=== PATIENT | female | born 1990 | race Caucasian/White ===

== ENCOUNTER 2018-04-20 21:04 | Inpatient (IN) | payer OTHER ==
[2018-04-21] MEDS: ACETAMINOPHEN 325 MG TAB PO (01:56)
[2018-04-21] MEDS: ONDANSETRON (ODT) 4 MG TAB ODT (01:56)
[2018-04-21 02:14] LABS: ADD UMIC NO; UR ASCORBIC ACID NEGATIVE (NEGATIVE); UR BILIRUBIN (Dip) NEGATIVE (NEGATIVE); UR BLOOD (Dip) NEGATIVE (NEGATIVE); UR CLARITY CLEAR (CLEAR); UR COLOR STRAW (YELLOW); UR GLUCOSE (Dip) 3+ mg/dL (NEGATIVE); UR KETONES (Dip) 2+ mg/dL (NEGATIVE); UR LEUKOCYTE ESTERASE (Dip) NEGATIVE Leu/ul (NEGATIVE); UR NITRITE (Dip) NEGATIVE (NEGATIVE); UR SPECIFIC GRAVITY (Dip) 1.032 (1.003-1.030); UR TOTAL PROTEIN (Dip) NEGATIVE (NEGATIVE); UR UROBILINOGEN (Dip) NEGATIVE (NEGATIVE)
[2018-04-21] MEDS: SOD CHLORIDE 0.9% 1,000 ML IV (02:39)
[2018-04-21 03:02] LABS: ALANINE AMINOTRANSFERASE 8 IU/L (13-69); ALBUMIN 4.5 g/dl (3.3-4.9); ALBUMIN/GLOBULIN RATIO 1.15; ALKALINE PHOSPHATASE 143 IU/L (42-121); ANION GAP 18 (5-13); ASPARTATE AMINO TRANSFERASE 12 IU/L (15-46); BILIRUBIN,INDIRECT 0.4 mg/dl (0-1.1); BILIRUBIN,TOTAL 0.4 mg/dl (0.2-1.3); BLOOD UREA NITROGEN 9 mg/dl (7-20); CALCIUM 9.9 mg/dl (8.4-10.2); CARBON DIOXIDE 18 mmol/L (21-31); CHLORIDE 102 mmol/L (97-110); CREATININE 0.37 mg/dl (0.44-1.00); Estimated GFR > 60 mL/min (>60); GLUCOSE 337 mg/dl (70-220); POTASSIUM 3.9 mmol/L (3.5-5.1); SODIUM 138 mmol/L (135-144); TOTAL PROTEIN 8.4 g/dl (6.1-8.1)
[2018-04-21 04:12] LABS: MODE ROOM AIR; MetHgb Venous 0.3 %; Sample Type Blood venous; Site VENOUS LINE; Venous COHb 0.2 %; Venous Fraction OxyHgb 76.5 %; Venous Oxygen Sat 76.9 mmHG (55.0-75.0); Venous Total Hemglobin 14.4 g/dl
[2018-04-21 04:20] LABS: ADD MAN DIFF? NO
[2018-04-21 04:21] LABS: BASOPHILS % 0.3 % (0.0-2.0); EOSINOPHILS # 0.1 10^3/ul (0.0-0.5); EOSINOPHILS % 0.4 % (0.0-7.0); HEMATOCRIT 39.5 % (37.0-47.0); LYMPHOCYTES # 1.7 10^3/ul (0.8-2.9); LYMPHOCYTES % 15.4 % (15.0-51.0); MEAN CORPUSCULAR HEMOGLOBIN 26.2 pg (29.0-33.0); MEAN CORPUSCULAR HGB CONC 32.9 g/dl (32.0-37.0); MEAN CORPUSCULAR VOLUME 79.6 fl (82.0-101.0); MEAN PLATELET VOLUME 9.6 fl (7.4-10.4); MONOCYTE # 1.2 10^3/ul (0.3-0.9); MONOCYTES % 10.9 % (0.0-11.0); NEUTROPHIL # 8.2 10^3/ul (1.6-7.5); NEUTROPHILS % 72.6 % (39.0-77.0); PLATELET COUNT 298 10^3/UL (140-415); RED BLOOD COUNT 4.96 10^6/ul (4.20-5.40); RED CELL DISTRIBUTION WIDTH 12.2 % (11.5-14.5)
[2018-04-21 04:21] LABS: WHITE BLOOD COUNT 11.2 10^3/ul (4.8-10.8)
[2018-04-21] MEDS ORDERED: NS + KCL 30 MEQ 1,000 ML IV (04:23)
[2018-04-21] MEDS ORDERED: D10/0.45% NACL + KCL 40 MEQ 1,000 ML IV (04:23)
[2018-04-21] MEDS ORDERED: DEXTROSE 10 %/0.45 % NACL 1,000 ML IV (04:23)
[2018-04-21] MEDS ORDERED: SOD CHLORIDE 0.9% 1,000 ML IV (04:23)
[2018-04-21] MEDS ORDERED: NS + KCL 40 MEQ 1,000 ML IV (04:23)
[2018-04-21] MEDS ORDERED: DEXTROSE 50% 50 ML SYRINGE IV ×4 (04:30→09:30)
[2018-04-21] MEDS: LACTATED RINGER'S 670 ML IV (04:34)
[2018-04-21 06:07] LABS: ANION GAP 15 (5-13); BLOOD UREA NITROGEN 7 mg/dl (7-20); CALCIUM 8.6 mg/dl (8.4-10.2); CARBON DIOXIDE 17 mmol/L (21-31); CHLORIDE 105 mmol/L (97-110); CREATININE 0.32 mg/dl (0.44-1.00); Estimated GFR > 60 mL/min (>60); GLUCOSE 251 mg/dl (70-220); MAGNESIUM 1.6 mg/dl (1.7-2.5); MODE ROOM AIR; MetHgb Venous 0.3 %; PHOSPHORUS 3.3 mg/dl (2.5-4.9); SODIUM 137 mmol/L (135-144); Sample Type Blood venous; Site VENOUS LINE; Venous COHb 0.3 %; Venous Fraction OxyHgb 87.8 %; Venous Oxygen Sat 88.3 mmHG (55.0-75.0); Venous Total Hemglobin 13.5 g/dl
[2018-04-21 06:08] LABS: HEMOGLOBIN A1C 12.5 % (0-5.9)
[2018-04-21] MEDS ORDERED: ALBUTEROL/IPRATROPIUM (NEB) 3 ML AMP NEB (06:30)
[2018-04-21] MEDS: NS + KCL 30 MEQ 1,000 ML IV (06:56)
[2018-04-21] MEDS: D10/0.45% NACL + KCL 30 MEQ 1,000 ML IV ×2 (06:56→12:56)
[2018-04-21] MEDS: INSULIN REGULAR, HUMAN 100 UNIT in SOD CHLORIDE 0.9% 99 ML IV (06:59)
[2018-04-21 08:54] LABS: ANION GAP 11 (5-13); BLOOD UREA NITROGEN 6 mg/dl (7-20); CALCIUM 8.5 mg/dl (8.4-10.2); CARBON DIOXIDE 18 mmol/L (21-31); CHLORIDE 108 mmol/L (97-110); CREATININE 0.24 mg/dl (0.44-1.00); Estimated GFR > 60 mL/min (>60); GLUCOSE 261 mg/dl (70-220); MAGNESIUM 1.7 mg/dl (1.7-2.5); PHOSPHORUS 2.5 mg/dl (2.5-4.9); POTASSIUM 3.5 mmol/L (3.5-5.1); SODIUM 137 mmol/L (135-144)
[2018-04-21] MEDS: HEPARIN 5,000 UNIT/1 ML VIAL SC ×2 (08:58→20:52)
[2018-04-21] MEDS ORDERED: GLUCOSE GEL 15 GRAM TUBE PO ×2 (09:30)
[2018-04-21] MEDS ORDERED: GLUCAGON 1 MG INJ IM (09:30)
[2018-04-21] MEDS ORDERED: GLUCOSE GEL 15 GRAM TUBE BUCCAL (09:30)
[2018-04-21] MEDS: INSULIN GLARGINE [LANTus] (100 UNITS/ML) SYG SC (11:12)
[2018-04-21] MEDS ORDERED: INSULIN ASPART [NOVOLOG] 3 ML PEN SC (11:30)
[2018-04-21 12:51] LABS: ANION GAP 9 (5-13); BLOOD UREA NITROGEN 5 mg/dl (7-20); CALCIUM 8.3 mg/dl (8.4-10.2); CARBON DIOXIDE 23 mmol/L (21-31); CHLORIDE 107 mmol/L (97-110); CREATININE 0.28 mg/dl (0.44-1.00); Estimated GFR > 60 mL/min (>60); GLUCOSE 164 mg/dl (70-220); MAGNESIUM 1.7 mg/dl (1.7-2.5); PHOSPHORUS 2.6 mg/dl (2.5-4.9); POTASSIUM 3.8 mmol/L (3.5-5.1); SODIUM 139 mmol/L (135-144)
[2018-04-21] MEDS: INSULIN ASPART [NOVOLOG] 3 ML PEN SC ×5 (13:33→20:53)
[2018-04-21] MEDS: ACETAMINOPHEN 650MG/20.3ML CUP PO (19:38)
[2018-04-22 00:56] LABS: ANION GAP 11 (5-13); BLOOD UREA NITROGEN 7 mg/dl (7-20); CARBON DIOXIDE 24 mmol/L (21-31); CHLORIDE 101 mmol/L (97-110); CREATININE 0.35 mg/dl (0.44-1.00); Estimated GFR > 60 mL/min (>60); GLUCOSE 266 mg/dl (70-220); MAGNESIUM 1.8 mg/dl (1.7-2.5); PHOSPHORUS 3.8 mg/dl (2.5-4.9); POTASSIUM 3.5 mmol/L (3.5-5.1); SODIUM 136 mmol/L (135-144)
[2018-04-22] MEDS: ACCU-CHEK XX (02:00)
[2018-04-22] MEDS ORDERED: INSULIN GLARGINE [LANTus] (100 UNITS/ML) SYG SC (08:00)
[2018-04-22] MEDS: INSULIN ASPART [NOVOLOG] 3 ML PEN SC ×7 (08:05→21:26)
[2018-04-22] MEDS: INSULIN GLARGINE [LANTus] (100 UNITS/ML) SYG SC (08:09)
[2018-04-22] MEDS: HEPARIN 5,000 UNIT/1 ML VIAL SC ×2 (08:14→21:25)
[2018-04-23] MEDS: ACCU-CHEK XX (02:00)
[2018-04-23] MEDS: ONDANSETRON 4 MG INJ IV ×2 (05:43→12:58)
[2018-04-23 06:03] LABS: ADD MAN DIFF? NO
[2018-04-23 06:09] LABS: WHITE BLOOD COUNT 7.7 10^3/ul (4.8-10.8)
[2018-04-23 06:09] LABS: BASOPHILS % 0.4 % (0.0-2.0); EOSINOPHILS # 0.1 10^3/ul (0.0-0.5); EOSINOPHILS % 1.2 % (0.0-7.0); HEMATOCRIT 41.4 % (37.0-47.0); HEMOGLOBIN 13.8 g/dl (12.0-16.0); LYMPHOCYTES # 1.8 10^3/ul (0.8-2.9); LYMPHOCYTES % 23.3 % (15.0-51.0); MEAN CORPUSCULAR HEMOGLOBIN 26.7 pg (29.0-33.0); MEAN CORPUSCULAR HGB CONC 33.3 g/dl (32.0-37.0); MEAN CORPUSCULAR VOLUME 80.2 fl (82.0-101.0); MEAN PLATELET VOLUME 9.4 fl (7.4-10.4); MONOCYTES % 13.3 % (0.0-11.0); NEUTROPHIL # 4.7 10^3/ul (1.6-7.5); NEUTROPHILS % 61.3 % (39.0-77.0); PLATELET COUNT 340 10^3/UL (140-415); RED BLOOD COUNT 5.16 10^6/ul (4.20-5.40); RED CELL DISTRIBUTION WIDTH 11.9 % (11.5-14.5)
[2018-04-23 06:32] LABS: ANION GAP 14 (5-13); BLOOD UREA NITROGEN 13 mg/dl (7-20); CALCIUM 9.3 mg/dl (8.4-10.2); CARBON DIOXIDE 23 mmol/L (21-31); CHLORIDE 101 mmol/L (97-110); CREATININE 0.36 mg/dl (0.44-1.00); Estimated GFR > 60 mL/min (>60); GLUCOSE 322 mg/dl (70-220); POTASSIUM 3.7 mmol/L (3.5-5.1); SODIUM 138 mmol/L (135-144)
[2018-04-23 06:36] LABS: MAGNESIUM 1.6 mg/dl (1.7-2.5)
[2018-04-23 06:36] LABS: PHOSPHORUS 4.7 mg/dl (2.5-4.9)
[2018-04-23] MEDS: PANTOPRAZOLE 40 MG INJ IV (07:55)
[2018-04-23] MEDS: INSULIN ASPART [NOVOLOG] 3 ML PEN SC ×8 (08:00→21:04)
[2018-04-23] MEDS: ACETAMINOPHEN 650MG/20.3ML CUP PO ×2 (08:42→17:40)
[2018-04-23] MEDS: HEPARIN 5,000 UNIT/1 ML VIAL SC ×2 (08:49→21:05)
[2018-04-23] MEDS: INSULIN GLARGINE [LANTus] (100 UNITS/ML) SYG SC (08:49)
[2018-04-24] MEDS: ACCU-CHEK XX (02:10)
[2018-04-24] MEDS: PANTOPRAZOLE 40 MG INJ IV (05:52)
[2018-04-24] MEDS: INSULIN ASPART [NOVOLOG] 3 ML PEN SC ×4 (08:24→17:36)
[2018-04-24] MEDS: INSULIN GLARGINE [LANTus] (100 UNITS/ML) SYG SC (08:25)
[2018-04-24] MEDS: HEPARIN 5,000 UNIT/1 ML VIAL SC (08:26)
[2018-04-24] MEDS ORDERED: REPAGLINIDE 1 MG TAB PO (11:30)
[2018-04-24] MEDS: REPAGLINIDE 2 MG TAB PO ×2 (12:44→17:36)
== END 2018-04-24 19:05 | disposition home or self-care (01) | DRG 639 ==
LOC: FTE 21:04 → ICU 04-21 05:44 → 2NE 04-21 18:21
DX: E11.10 Type 2 diabetes mellitus with ketoacidosis without coma (principal); Z91.14 Patient's other noncompliance with medication regimen; Z79.4 Long term (current) use of insulin
CPT/HCPCS: 36415; 71045; 76700; 80048; 80053; 81003; 81025; 82803; 82962; 83036; 83605; 83735; 84100; 85025; 86337; 87081; 87400; 90686; 99291-25

== ENCOUNTER 2018-05-28 13:22 | Inpatient (IN) | payer OTHER ==
[2018-05-28] MEDS: SOD CHLORIDE 0.9% 640 ML IV (15:13)
[2018-05-28] MEDS ORDERED: ONDANSETRON 4 MG INJ ×2 (15:16→16:48)
[2018-05-28 15:23] LABS: MODE ROOM AIR; MetHgb Venous 0.2 %; Sample Type Blood venous; Site VENOUS LINE; Venous COHb 0.4 %; Venous Oxygen Sat 60.4 mmHG (55.0-75.0); Venous Total Hemglobin 16.3 g/dl
[2018-05-28] MEDS ORDERED: SOD CHLORIDE 0.9% 1,000 ML IV (15:26)
[2018-05-28] MEDS ORDERED: NS + KCL 40 MEQ 1,000 ML IV (15:26)
[2018-05-28] MEDS ORDERED: DEXTROSE 10 %/0.45 % NACL 1,000 ML IV (15:26)
[2018-05-28] MEDS ORDERED: D10/0.45% NACL + KCL 40 MEQ 1,000 ML IV (15:26)
[2018-05-28] MEDS ORDERED: DEXTROSE 50% 50 ML SYRINGE IV ×2 (15:30)
[2018-05-28 15:47] LABS: ANION GAP 29 (5-13); BLOOD UREA NITROGEN 11 mg/dl (7-20); CHLORIDE 102 mmol/L (97-110); CREATININE 0.55 mg/dl (0.44-1.00); Estimated GFR > 60 mL/min (>60); PHOSPHORUS 4.3 mg/dl (2.5-4.9); POTASSIUM 3.9 mmol/L (3.5-5.1); SODIUM 139 mmol/L (135-144)
[2018-05-28 15:48] LABS: CARBON DIOXIDE 8 mmol/L (21-31); GLUCOSE 432 mg/dl (70-220)
[2018-05-28] MEDS: LACTATED RINGER'S 640 ML IV (15:48)
[2018-05-28] MEDS: INSULIN REGULAR, HUMAN 100 UNIT in SOD CHLORIDE 0.9% 100 ML IV (16:13)
[2018-05-28] MEDS: NS + KCL 30 MEQ 1,000 ML IV ×2 (16:14→21:56)
[2018-05-28 16:15] LABS: HEMOGLOBIN A1C 11.6 % (0-5.9)
[2018-05-28] MEDS: D10/0.45% NACL + KCL 30 MEQ 1,000 ML IV (16:15)
[2018-05-28 16:28] LABS: ADD MAN DIFF? NO
[2018-05-28 16:30] LABS: BASOPHIL # 0.1 10^3/ul (0.0-0.1); BASOPHILS % 0.6 % (0.0-2.0); HEMATOCRIT 47.6 % (37.0-47.0); HEMOGLOBIN 15.6 g/dl (12.0-16.0); LYMPHOCYTES # 1.2 10^3/ul (0.8-2.9); LYMPHOCYTES % 7.6 % (15.0-51.0); MEAN CORPUSCULAR HEMOGLOBIN 26.6 pg (29.0-33.0); MEAN CORPUSCULAR HGB CONC 32.8 g/dl (32.0-37.0); MEAN CORPUSCULAR VOLUME 81.1 fl (82.0-101.0); MONOCYTE # 0.8 10^3/ul (0.3-0.9); MONOCYTES % 4.7 % (0.0-11.0); NEUTROPHILS % 85.6 % (39.0-77.0); PLATELET COUNT 455 10^3/UL (140-415); RED BLOOD COUNT 5.87 10^6/ul (4.20-5.40); RED CELL DISTRIBUTION WIDTH 12.2 % (11.5-14.5)
[2018-05-28 16:30] LABS: WHITE BLOOD COUNT 16.3 10^3/ul (4.8-10.8)
[2018-05-28 16:47] LABS: ADD UMIC YES; UR ASCORBIC ACID NEGATIVE (NEGATIVE); UR BACTERIA FEW /HPF (NONE SEEN); UR BILIRUBIN (Dip) NEGATIVE (NEGATIVE); UR BLOOD (Dip) 3+ mg/dL (NEGATIVE); UR CLARITY SLIGHTLY CLOUDY (CLEAR); UR COLOR STRAW (YELLOW); UR GLUCOSE (Dip) 3+ mg/dL (NEGATIVE); UR KETONES (Dip) 2+ mg/dL (NEGATIVE); UR LEUKOCYTE ESTERASE (Dip) NEGATIVE Leu/ul (NEGATIVE); UR NITRITE (Dip) NEGATIVE (NEGATIVE); UR RBC 4 /HPF (0-5); UR SPECIFIC GRAVITY (Dip) 1.014 (1.003-1.030); UR SQUAMOUS EPITHELIAL CELL FEW /HPF (FEW); UR TOTAL PROTEIN (Dip) 1+ mg/dl (NEGATIVE); UR UROBILINOGEN (Dip) NEGATIVE (NEGATIVE); UR WBC 33 /HPF (0-5)
[2018-05-28] MEDS: ONDANSETRON 4 MG INJ IV ×2 (16:48→20:54)
[2018-05-28] MEDS: METOCLOPRAMIDE 10 MG INJ IV ×2 (16:53→18:23)
[2018-05-28] MEDS: morphine 2 MG INJ IV (16:54)
[2018-05-28 17:24] LABS: MODE ROOM AIR; MetHgb Venous 0.2 %; Sample Type Blood venous; Site VENOUS LINE; Venous COHb 0.2 %; Venous Oxygen Sat 63.3 mmHG (55.0-75.0); Venous Total Hemglobin 15.8 g/dl
[2018-05-28 17:44] LABS: ANION GAP 26 (5-13); BLOOD UREA NITROGEN 11 mg/dl (7-20); CALCIUM 9.3 mg/dl (8.4-10.2); CARBON DIOXIDE 10 mmol/L (21-31); CHLORIDE 107 mmol/L (97-110); CREATININE 0.44 mg/dl (0.44-1.00); Estimated GFR > 60 mL/min (>60); GLUCOSE 330 mg/dl (70-220); MAGNESIUM 1.9 mg/dl (1.7-2.5); PHOSPHORUS 2.7 mg/dl (2.5-4.9); POTASSIUM 4.1 mmol/L (3.5-5.1); SODIUM 143 mmol/L (135-144)
[2018-05-28] MEDS ORDERED: ZOLPIDEM 5 MG TAB PO (19:30)
[2018-05-28] MEDS ORDERED: NACL 0.9% 3 ML SYG IV (19:30)
[2018-05-28] MEDS ORDERED: ACETAMINOPHEN 325 MG TAB PO (19:30)
[2018-05-28] MEDS ORDERED: morphine 2 MG INJ IV (19:30)
[2018-05-28] MEDS ORDERED: HYDROCODONE/APAP (5/325) TAB PO (19:30)
[2018-05-28 19:39] LABS: ANION GAP 23 (5-13); BLOOD UREA NITROGEN 11 mg/dl (7-20); CARBON DIOXIDE 10 mmol/L (21-31); CHLORIDE 111 mmol/L (97-110); CREATININE 0.43 mg/dl (0.44-1.00); Estimated GFR > 60 mL/min (>60); GLUCOSE 279 mg/dl (70-220); MAGNESIUM 1.9 mg/dl (1.7-2.5); PHOSPHORUS 2.1 mg/dl (2.5-4.9); POTASSIUM 3.9 mmol/L (3.5-5.1); SODIUM 144 mmol/L (135-144)
[2018-05-28 19:52] LABS: MODE ROOM AIR; MetHgb Venous 0.3 %; Sample Type Blood venous; Site VENOUS LINE; Venous COHb 0.3 %; Venous Fraction OxyHgb 81.8 %; Venous Oxygen Sat 82.3 mmHG (55.0-75.0); Venous Total Hemglobin 14.2 g/dl
[2018-05-28 23:44] LABS: MODE ROOM AIR; MetHgb Venous 0.2 %; Sample Type Blood venous; Site VENOUS LINE; Venous COHb 0.4 %; Venous Fraction OxyHgb 79.8 %; Venous Oxygen Sat 80.3 mmHG (55.0-75.0); Venous Total Hemglobin 14.4 g/dl
[2018-05-29] LABS: ANION GAP 15 (5-13); BLOOD UREA NITROGEN 9 mg/dl (7-20); CALCIUM 8.8 mg/dl (8.4-10.2); CARBON DIOXIDE 15 mmol/L (21-31); CHLORIDE 115 mmol/L (97-110); CREATININE 0.37 mg/dl (0.44-1.00); Estimated GFR > 60 mL/min (>60); GLUCOSE 274 mg/dl (70-220); MAGNESIUM 1.9 mg/dl (1.7-2.5); PHOSPHORUS 1.1 mg/dl (2.5-4.9); SODIUM 145 mmol/L (135-144)
[2018-05-29] MEDS: D10/0.45% NACL + KCL 30 MEQ 1,000 ML IV (02:36)
[2018-05-29 03:47] LABS: MODE ROOM AIR; MetHgb Venous 0.1 %; Sample Type Blood venous; Site VENOUS LINE; Venous COHb 0.1 %; Venous Fraction OxyHgb 55.2 %; Venous Oxygen Sat 55.3 mmHG (55.0-75.0); Venous Total Hemglobin 11.7 g/dl
[2018-05-29] MEDS: INSULIN REGULAR, HUMAN 100 UNIT in SOD CHLORIDE 0.9% 100 ML IV (03:50)
[2018-05-29 04:06] LABS: ANION GAP 9 (5-13); BLOOD UREA NITROGEN 7 mg/dl (7-20); CALCIUM 8.3 mg/dl (8.4-10.2); CARBON DIOXIDE 20 mmol/L (21-31); CHLORIDE 112 mmol/L (97-110); CREATININE 0.31 mg/dl (0.44-1.00); Estimated GFR > 60 mL/min (>60); GLUCOSE 286 mg/dl (70-220); MAGNESIUM 1.8 mg/dl (1.7-2.5); POTASSIUM 3.7 mmol/L (3.5-5.1); SODIUM 141 mmol/L (135-144)
[2018-05-29 04:11] LABS: HEMOGLOBIN A1C 12.8 % (0-5.9)
[2018-05-29] MEDS: ONDANSETRON 4 MG INJ IV ×3 (06:41→21:24)
[2018-05-29] MEDS: INSULIN GLARGINE [LANTus] (100 UNITS/ML) SYG SC (06:42)
[2018-05-29] MEDS: LORAZEPAM 2 MG INJ IV (07:09)
[2018-05-29 08:01] LABS: ANION GAP 9 (5-13); BLOOD UREA NITROGEN 6 mg/dl (7-20); CALCIUM 8.3 mg/dl (8.4-10.2); CARBON DIOXIDE 22 mmol/L (21-31); CHLORIDE 109 mmol/L (97-110); CREATININE 0.28 mg/dl (0.44-1.00); Estimated GFR > 60 mL/min (>60); GLUCOSE 263 mg/dl (70-220); MAGNESIUM 1.8 mg/dl (1.7-2.5); PHOSPHORUS 0.7 mg/dl (2.5-4.9); POTASSIUM 3.4 mmol/L (3.5-5.1); SODIUM 140 mmol/L (135-144)
[2018-05-29] MEDS: INSULIN ASPART [NOVOLOG] 3 ML PEN SC ×5 (08:41→21:00)
[2018-05-29] MEDS: ENOXAPARIN 40 MG/0.4 ML SYG SC (08:46)
[2018-05-29 12:26] LABS: ANION GAP 8 (5-13); BLOOD UREA NITROGEN 5 mg/dl (7-20); CALCIUM 8.5 mg/dl (8.4-10.2); CARBON DIOXIDE 22 mmol/L (21-31); CHLORIDE 110 mmol/L (97-110); CREATININE 0.26 mg/dl (0.44-1.00); Estimated GFR > 60 mL/min (>60); GLUCOSE 186 mg/dl (70-220); MAGNESIUM 1.8 mg/dl (1.7-2.5); PHOSPHORUS 0.8 mg/dl (2.5-4.9); POTASSIUM 3.4 mmol/L (3.5-5.1); SODIUM 140 mmol/L (135-144)
[2018-05-29] MEDS: METOCLOPRAMIDE 10 MG INJ IV ×2 (14:56→23:59)
[2018-05-29 16:10] LABS: ANION GAP 14 (5-13); BLOOD UREA NITROGEN 4 mg/dl (7-20); CALCIUM 8.4 mg/dl (8.4-10.2); CARBON DIOXIDE 20 mmol/L (21-31); CHLORIDE 102 mmol/L (97-110); CREATININE 0.25 mg/dl (0.44-1.00); Estimated GFR > 60 mL/min (>60); GLUCOSE 209 mg/dl (70-220); MAGNESIUM 1.7 mg/dl (1.7-2.5); PHOSPHORUS 1.1 mg/dl (2.5-4.9); POTASSIUM 3.2 mmol/L (3.5-5.1); SODIUM 136 mmol/L (135-144)
[2018-05-29] MEDS ORDERED: DEXTROSE 50% 50 ML SYRINGE IV ×2 (16:30)
[2018-05-29] MEDS ORDERED: GLUCOSE GEL 15 GRAM TUBE BUCCAL (16:30)
[2018-05-29] MEDS ORDERED: GLUCAGON 1 MG INJ IM (16:30)
[2018-05-29] MEDS ORDERED: GLUCOSE GEL 15 GRAM TUBE PO ×2 (16:30)
[2018-05-29] MEDS: POTASSIUM CHLORIDE (SR) 20 MEQ TAB PO (17:24)
[2018-05-29] MEDS ORDERED: METOCLOPRAMIDE 10 MG INJ (23:55)
[2018-05-30] MEDS ORDERED: ACCU-CHEK XX (02:00)
[2018-05-30] MEDS: ACCU-CHEK XX (02:00)
[2018-05-30] MEDS: ONDANSETRON 4 MG INJ IV (06:42)
[2018-05-30 07:48] LABS: ADD MAN DIFF? NO
[2018-05-30 07:53] LABS: WHITE BLOOD COUNT 11.3 10^3/ul (4.8-10.8)
[2018-05-30 07:53] LABS: BASOPHIL # 0.1 10^3/ul (0.0-0.1); BASOPHILS % 0.5 % (0.0-2.0); EOSINOPHILS # 0.1 10^3/ul (0.0-0.5); EOSINOPHILS % 0.4 % (0.0-7.0); HEMATOCRIT 38.7 % (37.0-47.0); HEMOGLOBIN 12.9 g/dl (12.0-16.0); LYMPHOCYTES # 1.2 10^3/ul (0.8-2.9); LYMPHOCYTES % 10.4 % (15.0-51.0); MEAN CORPUSCULAR HEMOGLOBIN 26.2 pg (29.0-33.0); MEAN CORPUSCULAR HGB CONC 33.3 g/dl (32.0-37.0); MEAN CORPUSCULAR VOLUME 78.7 fl (82.0-101.0); MEAN PLATELET VOLUME 9.4 fl (7.4-10.4); MONOCYTE # 1.2 10^3/ul (0.3-0.9); MONOCYTES % 10.2 % (0.0-11.0); NEUTROPHIL # 8.7 10^3/ul (1.6-7.5); NEUTROPHILS % 77.7 % (39.0-77.0); PLATELET COUNT 374 10^3/UL (140-415); RED BLOOD COUNT 4.92 10^6/ul (4.20-5.40); RED CELL DISTRIBUTION WIDTH 12.5 % (11.5-14.5)
[2018-05-30 08:15] LABS: ANION GAP 18 (5-13); BLOOD UREA NITROGEN 3 mg/dl (7-20); CALCIUM 8.9 mg/dl (8.4-10.2); CARBON DIOXIDE 22 mmol/L (21-31); CHLORIDE 97 mmol/L (97-110); CREATININE 0.32 mg/dl (0.44-1.00); Estimated GFR > 60 mL/min (>60); GLUCOSE 252 mg/dl (70-220); MAGNESIUM 1.8 mg/dl (1.7-2.5); POTASSIUM 3.5 mmol/L (3.5-5.1); SODIUM 137 mmol/L (135-144)
[2018-05-30] MEDS: ENOXAPARIN 40 MG/0.4 ML SYG SC (08:40)
[2018-05-30] MEDS ORDERED: METOCLOPRAMIDE 10 MG INJ IV (09:00)
[2018-05-30] MEDS: INSULIN GLARGINE [LANTus] (100 UNITS/ML) SYG SC (09:42)
[2018-05-30] MEDS: INSULIN ASPART [NOVOLOG] 3 ML PEN SC ×6 (09:43→20:30)
[2018-05-30] MEDS ORDERED: ONDANSETRON 4 MG INJ IV (13:30)
[2018-05-30] MEDS: MAGNESIUM SULFATE 2 GM/50 ML 50 ML IVPB (14:12)
[2018-05-30] MEDS: POTASSIUM CHLORIDE 40 MEQ in SOD CHLORIDE 0.9% 1,000 ML IV (14:12)
[2018-05-30] MEDS: ONDANSETRON INJ 8 MG in SOD CHLORIDE 0.9% 50 ML IV (20:51)
[2018-05-31] MEDS: POTASSIUM CHLORIDE 40 MEQ in SOD CHLORIDE 0.9% 1,000 ML IV ×3 (01:33→12:44)
[2018-05-31] MEDS: ACCU-CHEK XX ×2 (02:00→17:00)
[2018-05-31] MEDS: ONDANSETRON INJ 8 MG in SOD CHLORIDE 0.9% 50 ML IV (03:16)
[2018-05-31] MEDS: INSULIN ASPART [NOVOLOG] 3 ML PEN SC ×7 (07:58→17:30)
[2018-05-31] MEDS: INSULIN GLARGINE [LANTus] (100 UNITS/ML) SYG SC (07:59)
[2018-05-31] MEDS: ENOXAPARIN 40 MG/0.4 ML SYG SC (08:01)
== END 2018-05-31 18:50 | disposition home or self-care (01) | DRG 639 ==
LOC: ICU 16:54 → E/R 13:22 → PP2 05-29 20:37
PROVIDERS: Internal Medicine
DX: E11.10 Type 2 diabetes mellitus with ketoacidosis without coma (principal); K31.84 Gastroparesis; E87.6 Hypokalemia; E86.0 Dehydration; E11.43 Type 2 diabetes mellitus with diabetic autonomic (poly)neuropathy; Z79.4 Long term (current) use of insulin; Z91.14 Patient's other noncompliance with medication regimen
CPT/HCPCS: 36415; 71045; 80048; 81001; 82803; 82962; 83036; 83735; 84100; 85025; 87081; 96374; 99291-25

== ENCOUNTER 2018-08-14 17:02 | Emergency (ER) | payer OTHER ==
[2018-08-14] MEDS: ACCU-CHEK XX (22:00)
[2018-08-14] MEDS: INSULIN LISPRO 100 UNIT/ML VIAL SC (22:14)
[2018-08-14 23:05] LABS: ADD UMIC YES; UR ASCORBIC ACID NEGATIVE (NEGATIVE); UR BACTERIA FEW /HPF (NONE SEEN); UR BILIRUBIN (Dip) NEGATIVE (NEGATIVE); UR BLOOD (Dip) 3+ mg/dL (NEGATIVE); UR CLARITY SLIGHTLY CLOUDY (CLEAR); UR COLOR YELLOW (YELLOW); UR GLUCOSE (Dip) 3+ mg/dL (NEGATIVE); UR KETONES (Dip) 2+ mg/dL (NEGATIVE); UR LEUKOCYTE ESTERASE (Dip) NEGATIVE Leu/ul (NEGATIVE); UR NITRITE (Dip) POSITIVE (NEGATIVE); UR RBC > 182 /HPF (0-5); UR SPECIFIC GRAVITY (Dip) 1.025 (1.003-1.030); UR SQUAMOUS EPITHELIAL CELL MODERATE /HPF (FEW); UR TOTAL PROTEIN (Dip) NEGATIVE (NEGATIVE); UR UROBILINOGEN (Dip) NEGATIVE (NEGATIVE); UR WBC 37 /HPF (0-5)
== END 2018-08-14 23:56 | disposition home or self-care (01) ==
LOC: FTE 17:02
DX: E11.65 Type 2 diabetes mellitus with hyperglycemia (principal); Z79.4 Long term (current) use of insulin
CPT/HCPCS: 81001; 82962; 96372; 99284-25